=== PATIENT | male | born 1990 | race Asian ===

== ENCOUNTER 2016-08-14 04:06 | Emergency (ER) | payer OTHER ==
[2016-08-14 07:15] VITALS: BP 110/75
== END 2016-08-14 07:15 | disposition home or self-care (01) ==
LOC: ED 04:06
DX: R51 Headache (principal); R42 Dizziness and giddiness; H53.8 Other visual disturbances; R11.0 Nausea
CPT/HCPCS: J1200; J1885; J2765; J7030